=== PATIENT | male | born 1950 | race Caucasian/White ===

== ENCOUNTER 2016-07-08 08:15 | Inpatient (IN) | payer OTHER ==
[~2016-07-08 08:15] MED LIST: ACETAMINOPHEN 325 MG TAB PO ONE; BUPIVACAINE 0.25% 30 ML SDV ONE; CEFAZOLIN 2 GM/DEXTR 100 ML IV ONE; CHLORHEXIDINE GLUC HIBICLENS 118 ML BTL TP ONE; DEXAMETHASONE 4 MG/ML VIAL IVP ONE; FAMOTIDINE 20 MG TAB PO ONE; ROPI/epiNEPH/KETOROLAC JOINT COCKTAIL IU ONE; SKIN ADHESIVE (DERMABOND) 1 EACH TP ONE; TRANEXAMIC ACID 3,000 MG in NS 50 ML IRR ONE; TRANEXAMIC ACID 3,000 MG/50 ML BAG IRR ONE; VANCOMYCIN 1 GM VIAL IV ONE
[2016-07-08] MEDS ORDERED: CEFAZOLIN 2 GM/DEXTROSE/100 ML BAG IV ONE (09:34)
[2016-07-08] MEDS ORDERED: LIDOCAINE 1% 5 ML SDV ONE (09:34)
[2016-07-08] MEDS ORDERED: FAMOTIDINE 20 MG TAB ONE (09:34)
[2016-07-08] MEDS ORDERED: DEXAMETHASONE 4 MG/ML VIAL ONE ×2 (09:34→11:21)
[2016-07-08] MEDS ORDERED: ACETAMINOPHEN 325 MG TAB ONE (09:34)
[2016-07-08] MEDS ORDERED: BUPIVACAINE/EPI 0.5% 30 ML SDV ONE (11:03)
[2016-07-08] MEDS ORDERED: BUPIVACAINE 0.5% 30 ML SDV ONE (11:03)
[2016-07-08] MEDS ORDERED: fentaNYL 100 MCG/2 ML INJ ONE (11:20)
[2016-07-08] MEDS ORDERED: MIDAZOLAM 2 MG/2 ML VIAL ONE (11:20)
[2016-07-08] MEDS ORDERED: PROPOFOL/EMULSION 500 MG/50 ML BOTTLE IV ONE ×2 (11:20→12:11)
[2016-07-08] MEDS ORDERED: ONDANSETRON 4 MG/2 ML VIAL ONE (11:21)
[2016-07-08] MEDS ORDERED: LIDOCAINE 2% JELLY 5 ML TUBE ONE (11:23)
[2016-07-08] MEDS ORDERED: PHENYLEPHRINE HCL 100 MCG/ML SYR ONE (11:52)
[2016-07-08] MEDS ORDERED: VASOPRESSIN 20 UNIT/ML VIAL ONE (12:32)
[2016-07-08] MEDS ORDERED: METOCLOPRAMIDE 10 MG/2 ML VIAL IVP PRN (12:55)
[2016-07-08] MEDS ORDERED: PHARMACY PAIN CONSULT 1 EA MISC PRN (12:55)
[2016-07-08] MEDS ORDERED: ONDANSETRON 4 MG/2 ML VIAL IVP PRN (12:55)
[2016-07-08] MEDS ORDERED: CYCLOBENZAPRINE 10 MG TAB PO PRN (12:55)
[2016-07-08] MEDS ORDERED: diphenhydrAMINE 25 MG CAP PO PRN (12:55)
[2016-07-08] MEDS ORDERED: TEMAZEPAM 15 MG CAP PO PRN (12:55)
[2016-07-08] MEDS ORDERED: BISACODYL 10 MG SUPP PR PRN (12:55)
[2016-07-08] MEDS ORDERED: DIPHENOXYLATE/ATROPINE LOMOTIL 1 TAB PO PRN (12:55)
[2016-07-08] MEDS ORDERED: ONDANSETRON DISINTEGRATING 4 MG TAB PO PRN (12:55)
[2016-07-08] MEDS ORDERED: MAGNESIUM HYDROXIDE 30 ML UDCUP PO PRN (12:55)
[2016-07-08] MEDS ORDERED: PROMETHAZINE HCL 25 MG/ML INJ IVP PRN (12:55)
[2016-07-08] MEDS ORDERED: LACTULOSE 20 GM/30 ML UDCUP PO PRN (12:55)
[2016-07-08] MEDS ORDERED: PROMETHAZINE HCL 25 MG SUPPR PR PRN (12:55)
[2016-07-08] MEDS ORDERED: POLYETHYLENE GLYCOL 3350 17 GM PKT PO PRN (12:55)
--- NOTE | 2016-07-08 12:55 | POSTOPPROG ---
Post Op Note Date of Operation: 07/08/16 Surgeon: Robin Childers Pattern Layout Worker: digna childers Anesthesiologist: dr. cortez Anesthesia: Spinal, Other (Specify) (adductor canal block) Pre-op Diagnosis: left knee OA Post-op Diagnosis: same Indication: left knee pain due to OA that failed conservative measures Procedure: L TKA Findings: severe knee OA Inf/Abcess present in the surg proc area at time of surgery?: No EBL: 50-100
[2016-07-08] MEDS ORDERED: LR 1,000 ML IV SCH (13:00)
--- NOTE | 2016-07-08 13:43 | DX ---
Left knee, 2 views. HISTORY: left knee pain. Status post left knee arthroplasty. Post operative evaluation. FINDINGS: Postsurgical changes as seen of a left total knee arthroplasty. There is good alignment in appearance. No evidence for periprosthetic lucency or fracture. There is appropriate soft tissue saavedra ge for the immediate postsurgical appearance. IMPRESSION: Post surgical changes of left total knee arthroplasty with good alignment and appearance.
[2016-07-08] MEDS: oxyCODONE IR 5 MG TAB PO PRN ×3 (17:33→23:52)
[2016-07-08] MEDS: ACETAMINOPHEN 325 MG TAB PO SCH ×2 (17:33→23:51)
[2016-07-08] MEDS: ceFAZolin 2 GM/DEXTROSE 100 ML IV SCH (20:22)
[2016-07-08] MEDS: FAMOTIDINE 20 MG TAB PO SCH (20:23)
[2016-07-08] MEDS: SENNOSIDES/DOCUSATE SODIUM TAB PO SCH (20:23)
[2016-07-08] MEDS ORDERED: NON-FORMULARY NEW DRUG (Eszopiclone [Lunesta] 3 MG) PO SCH (21:00)
[2016-07-08] MEDS ORDERED: ALPRAZolam 1 MG TAB PO SCH (21:00)
[2016-07-08] MEDS ORDERED: METOPROLOL SUCCINATE XR 25 MG TAB PO SCH (21:00)
[2016-07-08] MEDS ORDERED: ATORVASTATIN CALCIUM 20 MG TAB PO SCH (21:00)
--- NOTE | 2016-07-08 22:16 | GOP ---
[f rep st] OPERATIVE REPORT DATE OF OPERATION: 07/08/2016 SURGEON: Gely Jordan MD SUPPLIER QUALITY MANAGER: Jada Jordan PA-C ANESTHESIA: Spinal. PREOPERATIVE DIAGNOSIS: Left knee osteoarthritis. POSTOPERATIVE DIAGNOSIS: Left knee osteoarthritis. PROCEDURE PERFORMED: Left total knee arthroplasty. FINDINGS: Severe patellofemoral osteoarthritis. ESTIMATED BLOOD LOSS: 30 cc. INDICATIONS: This is a 65-year-old male with severe and progressive pain and deformity of the left knee unresponsive to conservative care. Risks and benefits of the surgical intervention were explained in detail. DESCRIPTION OF PROCEDURE: The patient was brought to the operative room and placed on the table in the supine position. Spinal anesthesia was induced without difficulty. A pneumatic tourniquet was applied about the left proximal thigh, and the leg was prepped and draped in a sterile fashion. The leg de jesus was applied. After exsanguination by elevation the tourniquet was inflated to 250 mm of mercury. Incision was made anterior medial from the tibial tuberosity to a point 2 cm proximal to the superior pole of the patella. Medial parapatellar arthrotomy was carried out from the superior pole of the patella and posteriorly in line with the fibers of the Type II VMO. The medial collateral ligament was elevated and the infrapatellar fat pad was resected. The patella was everted and the articular surface was excised. A 35 mm patellar button was placed. The distal femoral guide hole was drilled and the 6 degree alignment eliezer was placed. A 10 mm distal femoral cut was made without difficulty. Attention was turned to the tibia and a standard 9 mm cut based on the lateral tibial condyle was performed. The tibial articular surface was excised without difficulty. Attention was turned back to the femur and a size 6 Triathlon femoral cutting block was positioned. Anterior, posterior, and chamfer cuts were made, followed by the intercondylar box cut. The knee was extended and the remnants of the medial and lateral meniscus were excised. The posterior capsule was injected with ropivacaine, epinephrine and Toradol. A size 6 MIS mini-keel tray was positioned. Trial reduction was then carried out. There was excellent range of motion, alignment, and stability using the 9 mm polyethylene. All trials were then removed. The joint was thoroughly irrigated and carefully dried. Two packages of cement and 2 grams of vancomycin were mixed in the vacuum mixer and placed on the fixation surfaces of all surfaces of the components. The components were implanted and all excess cement was thoroughly removed. The permanent 9 mm polyethylene X3 was placed without difficulty. The tourniquet was deflated and all bleeders were coagulated. The wound was thoroughly irrigated and closed using interrupted sutures of 2-0 Vicryl for the joint capsule. The subcu was closed with 3-0 Vicryl and the skin with 4-0 Monocryl. Dermabond and Steri-Strips were applied followed by a compressive dressing. The patient was then moved from the operating room to the recovery room in good condition, having tolerated the procedure well. /[id number]/MODL MTDD
[2016-07-09] MEDS: ceFAZolin 2 GM/DEXTROSE 100 ML IV SCH (04:00)
[2016-07-09 04:03] VITALS: O2SAT 97
[2016-07-09 05:00] LABS: HEMATOCRIT 37.5 % (40.0-51.0)
[2016-07-09] MEDS: ACETAMINOPHEN 325 MG TAB PO SCH (05:49)
[2016-07-09] MEDS: oxyCODONE IR 5 MG TAB PO PRN ×2 (05:50→09:13)
[2016-07-09] MEDS ORDERED: LEVOTHYROXINE 25 MCG TAB PO SCH (06:00)
[2016-07-09 08:09] VITALS: BP 99/56; PULSE 75; RESP 15; TEMP 98.5
[2016-07-09] MEDS ORDERED: QUEtiapine FUMARATE 300 MG TAB PO SCH (09:00)
[2016-07-09] MEDS ORDERED: buPROPion 100 MG TAB PO SCH (09:00)
[2016-07-09] MEDS ORDERED: RIVAROXABAN 10 MG TAB PO SCH (09:00)
[2016-07-09] MEDS ORDERED: LIOTHYRONINE SODIUM 25 MCG TAB PO SCH (09:00)
[2016-07-09] MEDS: SENNOSIDES/DOCUSATE SODIUM TAB PO SCH (09:03)
[2016-07-09] MEDS: FAMOTIDINE 20 MG TAB PO SCH (09:04)
--- NOTE | 2016-07-09 10:21 | SOAPPROG ---
SOAP Progress Note Assessment/Plan: Assessment: Connor is doing well POD 1 s/p L TKA 1. pain management: pain well controlled on oral pain medications. 2. VTE ppx: recommend ASA 325 mg daily. cont TIM martinez 3. Anemia: level is expected initially postop. asymptomatic. 4. d/c planning: d/c to home today. Plan: 07/09/16 10:20 Subjective: Connor is doing well today, denies SOB, chest pain and N/V. Objective: Vital Signs Temp Pulse Resp BP Pulse Ox 36.9 C 75 15 99/56 L 97 07/09/16 08:08 07/09/16 08:08 07/09/16 08:08 07/09/16 08:08 07/09/16 08:08 Laboratory Results 07/09/16 04:45 07/08/16 07/09/16 07/10/16 05:59 05:59 05:59 Intake Total 2920 Output Total 500 Balance 2420 LLE: incision dressing is clean and dry, NVI, +pf/df ICD10 Worksheet Patient Problems: Problems Problem Status Diagnosed Primary localized osteoarthritis of left knee Acute
--- NOTE | 2016-07-14 11:06 | GDS ---
[f rep st] DISCHARGE SUMMARY ADMISSION DIAGNOSIS: Left knee osteoarthritis. DISCHARGE DIAGNOSIS: Left knee osteoarthritis. PROCEDURE: Left total knee arthroplasty. VTE PROPHYLAXIS: Recommend patient resume Xarelto. BRIEF DESCRIPTION OF HOSPITAL STAY: Patient was admitted for an elective joint arthroplasty. The pa tient tolerated the procedure well and has passed physical therapy. The patient was given appropriat e antibiotic prophylaxis and venous thromboembolism prophylaxis. The patient's pain was well control led on oral pain medication, patient was holding down food, and had urinated. Decision was made to d ischarge the patient. The patient was given post-operative prescriptions pre-operatively. PLAN: Please follow up as scheduled on 07/28 at 9:30 a.m. /[id number]/MODL
== END 2016-07-09 12:01 | disposition home or self-care (01) | DRG 470 ==
LOC: F3N 09:11
PROVIDERS: ADMIT Orthopaedic Surgery; ATTEND Orthopaedic Surgery
PROC: 0SRD0J9 Replacement of Left Knee Joint with Synthetic Substitute, Cemented, Open Approach (ICD-10-PCS; principal; 2016-07-08 11:15)
DX: M17.12 Unilateral primary osteoarthritis, left knee (principal)
CPT/HCPCS: 97110-GP; 97116-GP; 97161-GP; 97165-GO; 97530-GP; C1713; J0171; J0690; J1100; J1885; J2250; J2370; J2405; J2704; J2795; J3010; J3370

== ENCOUNTER 2016-09-09 08:02 | Inpatient (IN) | payer OTHER ==
[~2016-09-09 08:02] MED LIST changes: -BUPIVACAINE 0.25% 30 ML SDV ONE
[2016-09-09] MEDS ORDERED: LIDOCAINE 1% 2 ML INJ ONE (08:37)
[2016-09-09] MEDS ORDERED: LR 1,000 ML IV ONE (08:51)
[2016-09-09] MEDS ORDERED: LIDOCAINE 1% 5 ML SDV ID PRN (08:51)
[2016-09-09] MEDS ORDERED: ACETAMINOPHEN 325 MG TAB ONE (08:58)
[2016-09-09] MEDS ORDERED: DEXAMETHASONE 4 MG/ML VIAL ONE (08:58)
[2016-09-09] MEDS ORDERED: FAMOTIDINE 20 MG TAB ONE (08:58)
[2016-09-09] MEDS ORDERED: CEFAZOLIN 2 GM/DEXTROSE/100 ML BAG IV ONE (08:58)
[2016-09-09] MEDS ORDERED: MIDAZOLAM 2 MG/2 ML VIAL ONE (09:37)
[2016-09-09] MEDS ORDERED: fentaNYL 100 MCG/2 ML INJ ONE (09:47)
[2016-09-09] MEDS ORDERED: PROPOFOL/EMULSION 500 MG/50 ML BOTTLE IV ONE (10:05)
[2016-09-09] MEDS ORDERED: epHEDrine SULFATE 10 MG/ML SYR ONE ×2 (10:23→11:00)
--- NOTE | 2016-09-09 11:22 | POSTOPPROG ---
Post Op Note Date of Operation: 09/09/16 Surgeon: Robin Childers Production Sorter: digna childers Anesthesiologist: dr. coronel Anesthesia: Spinal, Other (Specify) (adductor canal block) Pre-op Diagnosis: R knee OA Post-op Diagnosis: same Indication: right knee pain due to OA that failed conservative measures Procedure: R TKA Findings: severe knee OA Inf/Abcess present in the surg proc area at time of surgery?: No EBL: 50-100
[2016-09-09] MEDS ORDERED: DIPHENOXYLATE/ATROPINE LOMOTIL 1 TAB PO PRN (11:23)
[2016-09-09] MEDS ORDERED: METOCLOPRAMIDE 10 MG/2 ML VIAL IVP PRN (11:23)
[2016-09-09] MEDS ORDERED: BISACODYL 10 MG SUPP PR PRN (11:23)
[2016-09-09] MEDS ORDERED: TEMAZEPAM 15 MG CAP PO PRN (11:23)
[2016-09-09] MEDS ORDERED: ONDANSETRON 4 MG/2 ML VIAL IVP PRN (11:23)
[2016-09-09] MEDS ORDERED: PHARMACY PAIN CONSULT 1 EA MISC PRN (11:23)
[2016-09-09] MEDS ORDERED: diphenhydrAMINE 25 MG CAP PO PRN (11:23)
[2016-09-09] MEDS ORDERED: LACTULOSE 20 GM/30 ML UDCUP PO PRN (11:23)
[2016-09-09] MEDS ORDERED: ONDANSETRON DISINTEGRATING 4 MG TAB PO PRN (11:23)
[2016-09-09] MEDS ORDERED: PROMETHAZINE HCL 25 MG SUPPR PR PRN (11:23)
[2016-09-09] MEDS ORDERED: POLYETHYLENE GLYCOL 3350 17 GM PKT PO PRN (11:23)
[2016-09-09] MEDS ORDERED: MAGNESIUM HYDROXIDE 30 ML UDCUP PO PRN (11:23)
[2016-09-09] MEDS: ACETAMINOPHEN 325 MG TAB PO SCH ×3 (13:04→23:38)
[2016-09-09] MEDS: LR 1,000 ML IV SCH ×2 (13:06→21:55)
[2016-09-09] MEDS: oxyCODONE IR 5 MG TAB PO PRN ×3 (13:58→21:55)
[2016-09-09] MEDS: ceFAZolin 2 GM/DEXTROSE 100 ML IV SCH (18:23)
[2016-09-09] MEDS: SENNOSIDES/DOCUSATE SODIUM TAB PO SCH (19:54)
[2016-09-09] MEDS: FAMOTIDINE 20 MG TAB PO SCH (19:54)
[2016-09-09] MEDS ORDERED: METOPROLOL SUCCINATE XR 25 MG TAB PO SCH (21:00)
[2016-09-09] MEDS ORDERED: ZOLPIDEM TARTRATE 5 MG TAB PO SCH (21:00)
[2016-09-09] MEDS ORDERED: ATORVASTATIN CALCIUM 20 MG TAB PO SCH (21:00)
[2016-09-09] MEDS ORDERED: ALPRAZolam 1 MG TAB PO SCH (21:00)
[2016-09-09] MEDS ORDERED: QUEtiapine FUMARATE 300 MG TAB PO SCH (21:00)
[2016-09-09] MEDS ORDERED: NON-FORMULARY NEW DRUG (Eszopiclone [Lunesta] 3 MG) PO SCH (21:00)
[2016-09-10] MEDS: ceFAZolin 2 GM/DEXTROSE 100 ML IV SCH (01:28)
[2016-09-10] MEDS: oxyCODONE IR 5 MG TAB PO PRN ×2 (01:31→08:05)
[2016-09-10] MEDS: CYCLOBENZAPRINE 10 MG TAB PO PRN ×2 (01:31→08:05)
[2016-09-10 05:28] LABS: HEMATOCRIT 36.2 % (40.0-51.0); HEMOGLOBIN 12.4 g/dL (13.7-17.5)
[2016-09-10] MEDS: ACETAMINOPHEN 325 MG TAB PO SCH (05:50)
[2016-09-10] MEDS ORDERED: LEVOTHYROXINE 25 MCG TAB PO SCH (06:00)
[2016-09-10 07:34] VITALS: BP 111/61; PULSE 70; RESP 15; TEMP 97.5; O2SAT 99
[2016-09-10] MEDS: FAMOTIDINE 20 MG TAB PO SCH (08:01)
[2016-09-10] MEDS: SENNOSIDES/DOCUSATE SODIUM TAB PO SCH (08:02)
[2016-09-10] MEDS ORDERED: LIOTHYRONINE SODIUM 25 MCG TAB PO SCH (09:00)
[2016-09-10] MEDS ORDERED: buPROPion 100 MG TAB PO SCH (09:00)
[2016-09-10] MEDS ORDERED: RIVAROXABAN 10 MG TAB PO SCH (09:00)
--- NOTE | 2016-09-10 09:45 | SOAPPROG ---
SOAP Progress Note Assessment/Plan: Assessment: Connor is doing well POD 1 s/p R TKA 1. pain management: pain is well controlled on oral pain meds 2. VTEppx: recommend he resume xarelto. rec TIM and SCDs 3. Anemia: level expected initially postop, asymptomatic 4. D/c planning: recommend d/c to home pending release from PT today. 5. postop urinary retention: resolved today Plan: 09/10/16 09:44 Subjective: Connor is doing well this morning ,denies SOB, chest pain and N/V. Objective: Vital Signs Temp Pulse Resp BP Pulse Ox 36.4 C 70 15 111/61 99 09/10/16 07:33 09/10/16 07:33 09/10/16 07:33 09/10/16 07:33 09/10/16 07:33 Laboratory Results 09/10/16 04:53 09/09/16 09/10/16 09/11/16 05:59 05:59 05:59 Intake Total 3710 Output Total 1500 Balance 2210 RLE: incision dressing is clean and dry, NVI, +pf/df ICD10 Worksheet Patient Problems: Problems Problem Status Onset Primary localized osteoarthritis of right knee Acute
--- NOTE | 2016-09-10 11:16 | GDS ---
[f rep st] DISCHARGE SUMMARY ADMISSION DIAGNOSIS: Right knee osteoarthritis. DISCHARGE DIAGNOSIS: Right knee osteoarthritis. PROCEDURE: Right total knee arthroplasty. VTE PROPHYLAXIS: Recommend the patient resume his Xarelto. BRIEF DESCRIPTION OF HOSPITAL STAY: Patient was admitted for an elective joint arthroplasty. The p atient tolerated the procedure well and has passed physical therapy. The patient was given appropri ate antibiotic prophylaxis and venous thromboembolism prophylaxis. The patient's pain was well cont rolled on oral pain medication, patient was holding down food, and had urinated. Decision was made to discharge the patient. The patient was given post-operative prescriptions pre-operatively. PLAN: Please follow up as scheduled in Dr. Jordan's office on September 29 at 11:30 a.m. /[id number]/MODL
--- NOTE | 2016-09-10 11:41 | GOP ---
[f rep st] OPERATIVE REPORT DATE OF OPERATION: 09/09/2016 SURGEON: Gely Jordan MD STITCHER SPECIAL MACHINE: PERRY Tucker ANESTHESIA: Spinal. PREOPERATIVE DIAGNOSIS: Right knee osteoarthritis. POSTOPERATIVE DIAGNOSIS: Right knee osteoarthritis. PROCEDURE PERFORMED: Right total knee arthroplasty. FINDINGS: ESTIMATED BLOOD LOSS: 30 mL INDICATIONS: This is a 65-year-old male with severe and progressive pain and deformity of the right knee unresponsive to conservative care. Risks and benefits of the surgical intervention were expla ined in detail. DESCRIPTION OF PROCEDURE: The patient was brought to the operative room and placed on the table in the supine position. Spinal anesthesia was induced without difficulty. A pneumatic tourniquet was applied about the right proximal thigh, and the leg was prepped and draped in a sterile fashion. Th e leg de jesus was applied. After exsanguination by elevation the tourniquet was inflated to 250 mm o f mercury. Incision was made anterior medial from the tibial tuberosity to a point 2 cm proximal to the superio r pole of the patella. Medial parapatellar arthrotomy was carried out from the superior pole of the patella and posteriorly in line with the fibers of the Type II VMO. The medial collateral ligament was elevated and the infrapatellar fat pad was resected. The patella was everted and the articular surface was excised. A 38 mm patellar button was placed. The distal femoral guide hole was drilled and the 6-degree alignment eliezer was placed. A 10 mm distal femoral cut was made without difficulty. Attention was turned to the tibia and a standard 9 mm cut based on the lateral tibial condyle was pe rformed. The tibial articular surface was excised without difficulty. Attention was turned back to the femur and a size 6 Triathlon femoral cutting block was positioned. Anterior, posterior, and chamfer cuts were made, followed by the intercondylar box cut. The knee was extended and the remnants of the medial and lateral meniscus were excised. The posteri or capsule was injected with ropivacaine, epinephrine and Toradol. A size 6 MIS mini-keel tibial tr ay was positioned. Trial reduction was then carried out. There was excellent range of motion, alig nment, and stability using the 9 mm polyethylene. All trials were then removed. The joint was thoroughly irrigated and carefully dried. Two packages of cement and 2 grams of vancomycin were mixed in the vacuum mixer and placed on the fixation surfa chelo of all surfaces of the components. The components were implanted and all excess cement was thor oughly removed. The permanent 9 mm polyethylene was placed without difficulty. The tourniquet was deflated and all bleeders were coagulated. The wound was thoroughly irrigated an d closed using interrupted sutures of 2-0 Vicryl for the joint capsule. The subcu was closed with 3 -0 Vicryl and the skin with 4-0 Monocryl. Dermabond and Steri-Strips were applied followed by a com pressive dressing. The patient was then moved from the operating room to the recovery room in good condition, having tolerated the procedure well. PATHOLOGY: Severe patellofemoral and lateral compartment osteoarthritis. /[id number]/MODL
== END 2016-09-10 11:46 | disposition home or self-care (01) | DRG 470 ==
LOC: F3N 08:02
PROVIDERS: ADMIT Orthopaedic Surgery; ATTEND Orthopaedic Surgery
PROC: 0SRC0J9 Replacement of Right Knee Joint with Synthetic Substitute, Cemented, Open Approach (ICD-10-PCS; principal; 2016-09-09 10:15)
DX: M17.11 Unilateral primary osteoarthritis, right knee (principal); I48.91 Unspecified atrial fibrillation; I10 Essential (primary) hypertension; E03.9 Hypothyroidism, unspecified
CPT/HCPCS: 97116-GP; 97161-GP; 97165-GO; C1713; J0171; J0690; J1100; J1885; J2250; J2704; J2795; J3010; J3370

== ENCOUNTER → 2017-04-18 | Outpatient (CLI) | payer OTHER | LOC: FIMAGING 13:13 | PROVIDERS: ATTEND Registered Nurse | DX: R05 Cough (principal); R09.89 Other specified symptoms and signs involving the circulatory and respiratory systems ==

== ENCOUNTER 2018-08-16 12:20 | Emergency (ER) | payer OTHER ==
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
[2018-08-16 12:57] LABS: PLATELET COUNT 222 10^3/uL (150-400)
[2018-08-16 13:04] LABS: INR 1.11 (0.83-1.16); PROTIME(PATIENT) 13.9 SEC (12.0-15.0)
[2018-08-16] MEDS ORDERED: TDAP ADULT 0.5 ML INJ (BOOSTRIX) IM ONE (14:34)
[2018-08-16 15:44] VITALS: BP 139/82
--- NOTE | 2018-08-17 19:55 | CPEKG ---
Test Reason : OPEN Blood Pressure : / mmHG Vent. Rate : 078 BPM Atrial Rate : 078 BPM P-R Int : 139 ms QRS Dur : 080 ms QT Int : 367 ms P-R-T Axes : 066 061 040 degrees QTc Int : 419 ms Sinus rhythm Confirmed by Enriqueta Dougherty ([id number]) on 08/17/2018 7:55:02 PM Referred By: ENRIQUETA DOUGHERTY Confirmed By:Enriqueta Dougherty
== END 2018-08-16 15:32 | disposition home or self-care (01) ==
LOC: EDUNIT#
DX: R41.3 Other amnesia (principal); S01.111A Laceration without foreign body of right eyelid and periocular area, initial encounter; I48.0 Paroxysmal atrial fibrillation; I10 Essential (primary) hypertension; G40.909 Epilepsy, unspecified, not intractable, without status epilepticus; V49.49XA Driver injured in collision with other motor vehicles in traffic accident, initial encounter; Y92.410 Unspecified street and highway as the place of occurrence of the external cause; Z23 Encounter for immunization; Z79.01 Long term (current) use of anticoagulants
CPT/HCPCS: 84484-ER; G0480

== ENCOUNTER → 2018-08-31 | Outpatient (CLI) | payer OTHER ==
--- NOTE | 2018-08-31 16:10 | CPEEG ---
[f rep st] ELECTROENCEPHALOGRAM DATE OF STUDY: 08/31/2018 DATE OF INTERPRETATION: 08/31/2018 INTERPRETATION: Normal EEG during wakefulness and drowsiness. There were no potentially epileptogen ic abnormalities present during the recording. REPORT: This EEG contained 10 Hz alpha activity to the posterior head regions. There was no abnorma l activation at rest, during photic stimulation or hyperventilation. The patient became drowsy durin g the study. There was no abnormal activation during drowsiness or during times of arousal. /[id number]/MODL
== END ==
LOC: FCPNEURO 09:40
PROVIDERS: ATTEND Psychiatry & Neurology Neurology
DX: R40.20 Unspecified coma (principal)